=== PATIENT | female | born 1985 | race Caucasian/White ===

== ENCOUNTER 2020-11-24 18:15 | Emergency (ER) | payer OTHER ==
[~2020-11-24] VITALS: Ht 165.1 cm; Wt 77.1 kg
[2020-11-24 18:22] VITALS: BP 144/70
[2020-11-24 18:32] LABS: BASO % 0 % (0-3); EOS # 0.1 x10^3/uL (0.0-0.7); EOS % 1 % (0-3); HEMATOCRIT 38.3 % (36.0-47.0); HEMOGLOBIN 13.1 g/dL (12.0-15.5); LYMPH # 1.9 x10^3/uL (1.0-4.8); LYMPH % 23 % (24-48); MEAN CORPUSCULAR HEMOGLOBIN 33 pg (25-35); MEAN CORPUSCULAR HGB CONC 34 g/dL (31-37); MEAN CORPUSCULAR VOLUME 98 fL (79-100); MONO # 0.5 x10^3/uL (0.0-1.1); MONO % 7 % (0-9); NEUT # 5.9 x10^3/uL (1.8-7.7); NEUT % 70 % (31-73); PLATELET COUNT 275 x10^3/uL (140-400); RED BLOOD COUNT 3.91 x10^6/uL (3.50-5.40); WHITE BLOOD COUNT 8.5 x10^3/uL (4.0-11.0)
--- NOTE | 2020-11-24 18:34 | PHYS DOC ---
Past Medical History Past Medical History: Anxiety Past Medical History PTSD Past Surgical History: , Tonsillectomy Past Surgical History L wrist surgery age 9 Smoking Status: Never Smoker Alcohol Use: Occasionally Drug Use: None General Adult EDM: Chief Complaint: TRAUMA ACTIVATION HPI: HPI: Patient is a 35 year old female who presents today via EMS after a fall off her horse. She was riding around 5 pm tonight and as her horse stopped she fell off and landed on both her feet. She states she felt her right ankle get stuck in the sand and roll, and then felt a pop and extreme pain. She states she was able to walk/limp to the side of the arena. She presents with a large open laceration to the left lateral aspect of her ankle without hemorrhage at this time. She denies hitting her head, any LOC, or trauma to her neck or back. She does not take any blood thinners and is not up to date on her tetanus shot. She received 100mcg, then 50mcg of fentynl via EMS prior to arrival and is currently rating her pain 10. Review of Systems: Review of Systems: Constitutional: Denies fever or chills Eyes: Denies redness or eye pain HENT: Denies nasal congestion or sore throat Respiratory: Denies cough or shortness of breath Cardiovascular: Denies chest pain or palpitations GI: Denies abdominal pain, nausea, or vomiting : Denies dysuria or hematuria Musculoskeletal: Denies back pain. Pain at distal right ankle Integument: Denies rash; reports laceration to lateral aspect of right ankle Neurologic: Denies headache, focal weakness or sensory changes Complete systems were reviewed and found to be within normal limits, except as documented in this note. Current Medications: Current Medications Medications (Trade) Dose Ordered Sig/López Start Time Stop Time Status Last Admin Dose Admin Cefazolin Sodium/ Dextrose 50 ml @ 100 mls/hr 1X ONCE 11/24/20 18:30 11/24/20 18:59 UNV Allergies: Allergies: NKDA Physical Exam: PE: Constitutional: Well developed, well nourished, no acute distress, non-toxic appearance HENT: Normocephalic, atraumatic Eyes: PERRL, EOMI, conjunctiva normal, no discharge Neck: supple, no midline tenderness, full ROM Lungs & Thorax: No respiratory distress, equal chest rise and fall Heart: RRR no m/r/g Abdomen: Soft, no tenderness. Pelvis stable Skin: Warm, dry, no erythema, laceration to lateral aspect of right ankle Back: No tenderness, no CVA tenderness Extremities: ROM intact, no edema. +2/4 pulses on all four distal extremities, Capillary refill <2s in both LE, No neurologic deficits (sensory or motor) in both LE. 6 x 2 cm laceration on the lateral aspect of the right ankle Hemostasis controlled, underlying tissue visible. Neurologic: Alert and oriented X 3, normal motor function, normal sensory function, no focal deficits noted Psychologic: Affect normal, judgment normal EKG: EKG: Normal sinus rhythm at 78 bpm, no ST elevation, QRS 90, QT/QTc 372/428 Radiology/Procedures: Radiology/Procedures: PROCEDURE: ANKLE RIGHT 3V Three-view right ankle series Clinical indications: Status post fall with pain. FINDINGS: No acute fracture or dislocation or lytic process is evident. The mortise ankle joint is intact. Small accessory ossicles are seen within the medial aspect of the mortise ankle joint. This may be old since no definite donor site is seen. There is lateral soft tissue air which may be related to a laceration injury. IMPRESSION: No acute fracture identified. Electronically signed by: Nitin Jones MD (11/24/2020 6:57 PM) [id number] PROCEDURE: CHEST AP ONLY XR CHEST 1V CLINICAL INDICATIONS: Reason: peiroperative planning COMPARISON: None available. Findings: No acute lung infiltrate or pleural effusion or pulmonary edema or lung mass or pneumothorax is seen. The heart size, pulmonary vasculature, mediastinum and both bria are unremarkable. IMPRESSION: No acute radiographic abnormality is seen. Electronically signed by: Nitin Jones MD (11/24/2020 6:57 PM) [id number] PROCEDURE: CT LOW EXTREMITY W/CONTRAST RT Exam: CT right lower extremity with contrast INDICATION: Right knee and ankle pain, status post fall from horse TECHNIQUE: Sequential axial images through the right lower extremity obtained following the administration of 60 mL of Isovue-370 IV contrast. Sagittal and coronal reformatted images were reconstructed from the axial data and reviewed. Comparisons: Ankle radiographs same day FINDINGS: Small avulsion fracture noted along the anterior process of the talus seen on series 3 image 154. There is air within the soft tissues surrounding the ankle mortise, likely associated laceration along the anterior lateral aspect of the ankle. No other fractures are identified. Bone mineralization is normal. Joint spaces are well-maintained.. IMPRESSION: 1. Small avulsion fracture fragments along the anterior medial aspect of the talus. 2. Laceration along the anterior right ankle with small amount of soft tissue gas noted surrounding the ankle. Exposure: One or more of the following in the visualized dose reduction techniques were utilized for this examination: 1. Automated exposure control 2. Adjustment of the MA and/or KV according to patient size 3. Use of iterative of reconstructive technique Electronically signed by: Toan Dinh MD (11/24/2020 8:17 PM) [facility] Course & Med Decision Making: Course & Med Decision Making Pertinent Labs and Imaging studies reviewed. (See chart for details) Martell Horner is a 35 yo female who presents today after a fall from a horse. She has an open laceration to the lateral aspect of her right ankle. She recei christian an xray which did not show sign of a fracture. Due to the mechanism of injury a CT was indicated to rule out an occult fracture. CT noted a small avulsion fracture fragments along the anterior medial aspect of the talus and a laceration along the anterior right ankle with small amount of soft tissue gas noted surrounding the ankle. Case was discussed with orthopedic surgeon- Dr. Santoyo, who stated she could follow up outpt. The wound was thoroughly irrigated and 4 subcutaneous sutures were placed, along with 13 cutaneous sutures. A dressing and splint was also placed. Pt was educated on dressing changes and crutch use. She was given antibiotics to prevent infection and pain medication/muscle relaxers for pain management. She will follow up in 7-10 d with the orthopedic surgeon for suture removal and further management of her ankle injury. Patient stable for discharge with outpatient follow-up with PCP/Orthopedic surgery. Discussed findings and plan with patient and family, who acknowledge understanding and agreement. Jeramie Disclaimer: Jeramie Disclaimer: This electronic medical record was generated, in whole or in part, using a voice recognition dictation system. Departure Departure Impression: Primary Impression: Right ankle injury Qualified Codes: S99.911A - Unspecified injury of right ankle, initial encounter Additional Impressions: Laceration Avulsion fracture of ankle Qualified Codes: S82.891B - Other fracture of right lower leg, initial encounter for open fracture type I or II Disposition: 01 DC HOME SELF CARE/HOMELESS Condition: IMPROVED Referrals: ALON SANTOYO MD Patient Instructions: Avulsion Fracture, Crutch Use, [id number], Laceration Care, Adult, [id number], Splint Care, [id number] Additional Instructions: Do not soak your wound. You may clean wound daily with soap and water or hydrogen peroxide. Change dressing 2 times daily. Use over the counter antibiotic ointment with each dressing change. Sutures need to be removed in 10 days. Present to your family doctor or local urgent care for removal. You may also present to the ED but it will be an additional visit/charge. Scripts Orphenadrine Citrate (ORPHENADRINE CITRATE) 100 Mg Tablet.er 1 TAB PO BID PRN for MUSCLE SPASMS, #14 TAB Prov: ANA SANTANA DO 11/25/20 Oxycodone/Apap 5-325 (PERCOCET 5-325 MG TABLET ) 1 Each Tablet 0.5-1 TAB PO PRN Q6HRS PRN for PAIN, #14 TAB 0 Refills Prov: ANA SANTANA DO 11/25/20 Cephalexin (CEPHALEXIN) 500 Mg Capsule 1 CAP PO QID for 10 Days, #40 CAP Prov: NAA SANTANA DO 11/25/20 Splinting Splinting : Location: right ankle Hand-Made Type: orthoglass Splint: Posterior OCL Pre-Proc Neuro Vasc Exam: normal Post-Proc Neuro Vasc Exam: normal, unchanged from pre-exam Laceration/Wound Repair Laceration/Wound Repair : Wound Location: lower extremity (right ankle) Wound's Depth, Shape: linear Wound Length (cm): 6 Wound Explored: no foreign body removed Irrigated w/ Saline (ccs): 1000 Anesthesia: Lidocaine w/ Epi (2%) Volume Anesthetic (ccs): 6 Wound Debrided: minimal Wound Repaired With: sutures Suture Size/Type: 4:0, nylon Number of Sutures: 13 Deep Layer Suture Size/Type: 5:0 (Vicryl) Number Deep Layer Sutures: 4 Sterile Dressing Applied?: Yes Splint Applied?: Yes Type of Splint Applied: Posterior OCL Progress Verbal consent obtained. Time out performed. Hand hygiene utilized. Wound cleaned with ChloraPrep. Anesthesia obtained via a 25-gauge hypodermic needle with (6) mL's of lidocaine 2% with epinephrine. Copious irrigation performed. Wound well approximated with 4x 5-0 Vicryl subcutaneous sutures and 13x 4-0 Nylon simple interrupted sutures. Patient tolerated procedure well and without difficulty. Empiric antibiotic ointment applied prior to sterile dressing. Posterior OCL splint applied. ANA SANTANA DO Nov 24, 2020 18:33
[2020-11-24 18:41] LABS: CALCIUM 8.9 mg/dL (8.5-10.1); CREATININE 1.3 mg/dL (0.6-1.0); GFR 46.1
[2020-11-24] MEDS ORDERED: fentaNYL PF VIAL 100 MCG/2 ML VIAL IV ONE (18:45)
[2020-11-24 18:48] LABS: ALBUMIN 3.5 g/dL (3.4-5.0); ALBUMIN/GLOBULIN RATIO 1.1 (1.0-1.7); PROTHROMBIN TIME PATIENT 12.5 SEC (11.7-14.0); TOTAL BILIRUBIN 0.3 mg/dL (0.2-1.0); TOTAL PROTEIN 6.8 g/dL (6.4-8.2)
--- NOTE | 2020-11-24 18:59 | RAD ---
Three-view right ankle series Clinical indications: Status post fall with pain. FINDINGS: No acute fracture or dislocation or lytic process is evident. The mortise ankle joint is in tact. Small accessory ossicles are seen within the medial aspect of the mortise ankle joint. This may be old since no definite donor site is seen. There is lateral soft tissue air which may be related t o a laceration injury. IMPRESSION: No acute fracture identified. Electronically signed by: Nitin Jones MD (11/24/2020 6:57 PM) [id number]
--- NOTE | 2020-11-24 19:00 | RAD ---
XR CHEST 1V CLINICAL INDICATIONS: Reason: peiroperative planning COMPARISON: None available. Findings: No acute lung infiltrate or pleural effusion or pulmonary edema or lung mass or pneumothora x is seen. The heart size, pulmonary vasculature, mediastinum and both bria are unremarkable. IMPRESSION: No acute radiographic abnormality is seen. Electronically signed by: Nitin Jones MD (11/24/2020 6:57 PM) [id number]
[2020-11-24] MEDS ORDERED: DIPH,PERTUSS(ACELL),TET VAC/PF 0.5 ML SYRINGE. VAX IM ONE (19:15)
[2020-11-24] MEDS ORDERED: ORPHENADRINE CITRATE 60 MG/2 ML VIAL. IV ONE (19:30)
[2020-11-24] MEDS ORDERED: MORPHINE SULFATE 4 MG/ML VIAL. IV ONE ×2 (19:30→22:30)
[2020-11-24] MEDS ORDERED: IOHEXOL 300 MG/ML 100ML VIAL. IV ONE (19:45)
[2020-11-24] MEDS ORDERED: CONTRAST GIVEN. MC PRN (19:45)
--- NOTE | 2020-11-24 20:20 | RAD ---
Exam: CT right lower extremity with contrast INDICATION: Right knee and ankle pain, status post fall from horse TECHNIQUE: Sequential axial images through the right lower extremity obtained following the administr ation of 60 mL of Isovue-370 IV contrast. Sagittal and coronal reformatted images were reconstructed from the axial data and reviewed. Comparisons: Ankle radiographs same day FINDINGS: Small avulsion fracture noted along the anterior process of the talus seen on series 3 image 154. The re is air within the soft tissues surrounding the ankle mortise, likely associated laceration along t he anterior lateral aspect of the ankle. No other fractures are identified. Bone mineralization is normal. Joint spaces are well-maintained.. IMPRESSION: 1. Small avulsion fracture fragments along the anterior medial aspect of the talus. 2. Laceration along the anterior right ankle with small amount of soft tissue gas noted surrounding the ankle. Exposure: One or more of the following in the visualized dose reduction techniques were utilized for this examination: 1. Automated exposure control 2. Adjustment of the MA and/or KV according to patient size 3. Use of iterative of reconstructive technique Electronically signed by: Toan Dinh MD (11/24/2020 8:17 PM) MEGHAN
[2020-11-24 21:10] LABS: BILIRUBIN,URINE NEGATIVE (NEG); CLARITY,URINE CLEAR; COLOR,URINE YELLOW; NITRITE,URINE NEGATIVE (NEG); PH,URINE 6.5 (<5.0-8.0); PROTEIN,URINE NEGATIVE (NEG-TRACE); UROBILINOGEN,URINE 0.2 mg/dL (0.2 mg/dL)
[2020-11-24 21:15] LABS: AMORPHOUS SEDIMENT,UR PRESENT /HPF; BACTERIA,URINE FEW /HPF (0-FEW); RBC,URINE 0 /HPF (0-2)
[2020-11-24] MEDS ORDERED: NEOMY/BACITR/POLYMYXIN OINT PACKET. TP ONE ×2 (22:02→22:30)
[2020-11-24] MEDS ORDERED: LIDOCAINE 1% Multi-Dose 20 ML VIAL. ONE (22:02)
[2020-11-24] MEDS ORDERED: LIDOCAINE 2%/EPI 1:100,000 20 ML VIAL. INJ ONE (22:30)
[2020-11-25] MEDS ORDERED: CEPH500C PO (00:26)
[2020-11-25] MEDS ORDERED: OXYC1TAB15 PO (00:26)
[2020-11-25] MEDS ORDERED: ORPH100T PO (00:26)
[2020-11-25] MEDS ORDERED: oxyCODONE/APAP 5/325 1 TAB TABLET PO ONE (01:00)
--- NOTE | 2020-11-25 03:36 | EKG ---
[facility] [address] [place] [address] Test Date: 2020-11-24 Test Time: 18:48:41 Pat Name: SALTY EDOUARD Department: Room: Gender: F Elementary Supervisor: : [id number] Requested By: ANA SANTANA Order Number: [id number] Reading MD: Measurements Intervals [place] Rate: 78 P: 66 MO: 136 QRS: 80 QRSD: 90 T: 40 QT: 372 QTc: 428 Interpretive Statements SINUS RHYTHM NORMAL ECG RI6.02 No previous ECG available for comparison
== END 2020-11-25 00:35 | disposition home or self-care (01) ==
LOC: ER 18:17
DX: S82.891B Other fracture of right lower leg, initial encounter for open fracture type I or II (principal); Z20.822 Contact with and (suspected) exposure to COVID-19; F41.9 Anxiety disorder, unspecified; F43.12 Post-traumatic stress disorder, chronic; Z98.890 Other specified postprocedural states; Z90.89 Acquired absence of other organs; W18.39XA Other fall on same level, initial encounter; Y93.89 Activity, other specified; Y92.89 Other specified places as the place of occurrence of the external cause; Y99.8 Other external cause status
CPT/HCPCS: 12042; 36415; 71045; 73610; 73701; 80053; 81001; 81025; 82553; 83735; 84484; 85025; 85610; 85730; 87426; 90471; 90715; 93005; 96365; 96375; 96376; 99285; C9803; J0690; J2270; J2360; J3010; J3490; Q9967; U0003